=== PATIENT | male | born 2005 | race African-American/Black ===

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

== ENCOUNTER 2023-01-06 21:23 | Emergency (ER) | payer BC, SELFPAY ==
[2023-01-06 21:24] VITALS: BP 173/64; PULSE 121; RESP 16; TEMP 37; O2SAT 100
--- NOTE | 2023-01-06 21:40 | ECG_ITS ---
Measurements Intervals [place] Rate: 125 P: 71 PA: 144 QRS: -14 QRSD: 96 T: 57 QT: 298 QTc: 430 Interpretive Statements SINUS TACHYCARDIA EARLY REPOLARIZATION OTHERWISE nORMAL ECG Electronically Signed On 01-07-2023 8:29:33 CDT by Benjamín Byrd M.D.
--- NOTE | 2023-01-06 21:41 | ED.GENADULT ---
HPI - General Adult General Chief complaint: Nausea/Vomiting/Diarrhea Stated complaint: vomiting Time Seen by Provider: 01/06/23 21:24 History of Present Illness HPI narrative: 17-year-old male presents to the emergency department for evaluation of nausea vomiting and abdominal cramping. Patient states he worked out in the sun today and reports he was drinking Gatorade and water but started having the onset of symptoms. Patient denies any recent coughs colds or fevers. Patient denies any significant past medical history other than allergies. Related Data Allergies Allergy/AdvReac Type Severity Reaction Status Date / Time peanut Allergy Unknown Swelling Verified 09/23/22 19:20 of Lip/Tongue/Throat tree nut Allergy Unknown Swelling Verified 09/23/22 19:20 of Lip/Tongue/Throat shellfish derived Allergy Swelling Verified 09/23/22 19:20 of Lip/Tongue/Throat SEA FOOD Allergy Unknown Swelling Uncoded 09/23/22 19:20 of Lip/Tongue/Throat Review of Systems Review of Systems: All systems reviewed & are unremarkable except as noted in HPI and below Exam Narrative: APPEARANCE: Well appearing, no pain, no distress, well-nourished. HEAD: normocephalic, atraumatic. EYES: PERRLA/EOMI, conjunctivae clear. NOSE: Normal no drainage NECK: Supple. No adenopathy, no masses. RESPIRATORY: Airway patent, respirations nonlabored. Clear to auscultation bilaterally, no rales, rhonchi, wheezing. CARDIOVASCULAR: Regular rate and rhythm without murmurs rubs or gallops. ABDOMINAL: Soft, nontender, nondistended, normal bowel sounds MUSCULOSKELETAL: Moves all extremities. Strength/ROM intact, No edema, No calf tenderness. NEURO: Alert. Cranial nerves II through XII intact. SKIN: Warm, dry. Normal Color Course Course Emergency Course: 17-year-old male presented the ED for evaluation of nausea vomiting abdominal cramping. He is a patient was sticking his fingers in his throat during the initial examination and patient was asked to refrain from this. Patient was treated with IV Zofran and IV fluids. CBC CMP lipase and lactic were ordered. Patient was tachycardic and EKG was ordered. Patient was updated on the plan for treatment. All questions and concerns were addressed. Patient is afebrile with no leukocytosis patient has a stable hemoglobin. No significant electrolyte abnormalities. Urine shows no evidence of infection. Patient did feel improved with rehydration. Patient and family were updated the results of the work-up. Vital Signs Vital signs: Vital Signs Temperature 98.6 F 01/06/23 21:24 Pulse Rate 121 H 01/06/23 21:24 Respiratory Rate 16 01/06/23 21:24 Blood Pressure 173/64 H 01/06/23 21:24 Pulse Oximetry 100 01/06/23 21:24 Oxygen Delivery Room Air 01/06/23 21:24 Temperature 98.1 F 01/07/23 00:14 Pulse Rate 92 01/07/23 00:14 Respiratory Rate 15 01/07/23 00:14 Blood Pressure 146/61 H 01/07/23 00:14 Pulse Oximetry 97 01/07/23 00:14 Oxygen Delivery Room Air 01/06/23 21:24 Medical Decision Making Differential Diagnosis Differential Diagnosis: Dehydration, nausea vomiting diarrhea Vital Signs Vital Signs: Vital Signs Temperature 98.6 F 01/06/23 21:24 Pulse Rate 121 H 01/06/23 21:24 Respiratory Rate 16 01/06/23 21:24 Blood Pressure 173/64 H 01/06/23 21:24 Pulse Oximetry 100 01/06/23 21:24 Oxygen Delivery Room Air 01/06/23 21:24 Temperature 98.1 F 01/07/23 00:14 Pulse Rate 92 01/07/23 00:14 Respiratory Rate 15 01/07/23 00:14 Blood Pressure 146/61 H 01/07/23 00:14 Pulse Oximetry 97 01/07/23 00:14 Oxygen Delivery Room Air 01/06/23 21:24 Lab Data Lab results reviewed: Yes I reviewed the patient's lab results. 01/06/23 21:52 01/06/23 21:52 Labs: Lab Results 01/06/23 01/06/23 Range/Units 21:52 22:27 WBC 9.1 (4.5-10.0) K/mm3 RBC 5.10 (4.6-6.20) M/mm3 Hg
[2023-01-06] MEDS: SODIUM CHLORIDE 0.9% IV 1,000 ML 999 ML IV CONT ×2 (21:56→23:14)
[2023-01-06] MEDS: ONDANSETRON INJ 4 MG/2 ML VIAL IV PUSH (21:57)
[2023-01-06 21:58] LABS: Basophils Percent Auto 0.4 % (0.2-1.2); Eosinophils Absolute Auto 0.3 K/mm3 (0-0.3); Eosinophils Percent Auto 3.8 % (0-4.4); Hemoglobin 14.2 g/dL (14.0-18.0); Immature Granulocyte Absolute 0.02 K/mm3 (0.00-0.031); Immature Granulocyte Percent A 0.2 % (0-0.5); Lymphocytes Absolute Auto 1.74 K/mm3 (0.9-3.2); Lymphocytes Percent Auto 19.2 % (18.3-44.2); Mean Corpuscular Hemoglobin 27.8 pg (26-34); Mean Corpuscular Volume 84.3 fl (80-100); Mean Platelet Volume 10.2 fl (7.4-10.4); Monocytes Absolute Auto 0.8 K/mm3 (0.1-0.6); Monocytes Percent Auto 9.2 % (2.6-8.5); Neutrophils Absolute Auto 6.1 K/mm3 (1.3-6.7); Neutrophils Percent Auto 67.2 % (45.5-73.1); Platelet Count Result 228 k/mm3 (150-375); Red Cell Distribution Width 13.9 % (11.5-14.5); White Blood Count 9.1 K/mm3 (4.5-10.0)
[2023-01-06 22:17] LABS: Alanine Aminotransferase 32 U/L (6-50); Albumin Level 4.4 g/dL (3.7-5.6); Alkaline Phosphatase 158 U/L (58-237); Anion Gap 9 mmol/L (8-16); Aspartate Amino Transferase 46 U/L (17-59); Bilirubin,Total 0.5 mg/dL (0.2-1.3); Blood Urea Nitrogen 22 mg/dL (8-21); Calcium 9.2 mg/dL (8.9-10.7); Carbon Dioxide 28 mmol/L (22-30); Chloride 97 mmol/L (98-107); Estimated CRCL calculation 97 ml/min; Estimated Glomerular Filt Rate > 60; Glucose 191 mg/dL (65-110); Potassium 3.4 mmol/L (3.4-5.0); Sodium 134 mmol/L (134-143)
--- NOTE | 2023-01-06 22:25 | PC.NURSE ---
Assumed care of patient at this time. Report received from NADER Pham.
[2023-01-06 22:58] LABS: Appearance Urine Clear (Clear); Bilirubin Urine Negative (Negative); Blood Urine Negative (Negative); Color Urine Yellow (Yellow); Glucose Urine UA Trace mg/dL (Negative); Ketones Urine Negative (Negative); Leukocyte Esterase Ur Negative LEU/UL (Negative); Nitrate Urine Negative (Negative); Protein Urine Negative (Negative); Specific Grav Ur 1.007 (1.001-1.035); Urobilinogen Urine 0.2 mg/dL (<2.0)
[2023-01-06 23:02] LABS: Add Urine Microscopic? NO
[2023-01-07 00:14] VITALS: BP 146/61; PULSE 92; RESP 15; TEMP 36.7; O2SAT 97
== END 2023-01-07 00:16 | disposition home or self-care (01) ==
PROVIDERS: Emergency Provider Emergency Medicine
DX: E86.0 Dehydration (principal); R11.2 Nausea with vomiting, unspecified
CPT/HCPCS: 36415; 80053; 81003; 85025; 93005; 96361; 96374; 99284; J2405; J7030

== ENCOUNTER 2023-01-25 19:22 | Emergency (ER) | payer BC, SELFPAY ==
--- NOTE | ~2023-01-25 | XR_ITS ---
EXAMINATION: XR chest 2V DATE: 01/25/2023 20:11 INDICATION: Shortness of breath. TECHNIQUE: Frontal and lateral views of the chest were obtained. COMPARISON: None. FINDINGS: There is no pneumonia, pleural effusion, or pneumothorax. The heart size is normal. Pectus excavatum is noted. IMPRESSION: 1. No acute cardiopulmonary disease. Reviewed, dictated and finalized at location E.
[2023-01-25 19:48] VITALS: BP 148/65; PULSE 108; RESP 14; TEMP 37.1; O2SAT 100
[2023-01-25 20:48] LABS: Basophils Percent Auto 0.3 % (0.2-1.2); Eosinophils Absolute Auto 0.1 K/mm3 (0-0.3); Eosinophils Percent Auto 0.8 % (0-4.4); Hematocrit 47.1 % (42.0-52.0); Hemoglobin 15.6 g/dL (14.0-18.0); Immature Granulocyte Absolute 0.04 K/mm3 (0.00-0.031); Immature Granulocyte Percent A 0.3 % (0-0.5); Lymphocytes Absolute Auto 1.58 K/mm3 (0.9-3.2); Lymphocytes Percent Auto 12.6 % (18.3-44.2); Mean Corpuscular HGB Conc 33.1 g/dl (32-36); Mean Corpuscular Volume 84.6 fl (80-100); Mean Platelet Volume 10.6 fl (7.4-10.4); Monocytes Percent Auto 7.7 % (2.6-8.5); Neutrophils Absolute Auto 9.8 K/mm3 (1.3-6.7); Neutrophils Percent Auto 78.3 % (45.5-73.1); Platelet Count Result 267 k/mm3 (150-375); Red Blood Count 5.57 M/mm3 (4.6-6.20); Red Cell Distribution Width 14.2 % (11.5-14.5); White Blood Count 12.5 K/mm3 (4.5-10.0)
[2023-01-25 20:50] LABS: Appearance Urine Clear (Clear); Bilirubin Urine Negative (Negative); Blood Urine Negative (Negative); Color Urine Yellow (Yellow); Glucose Urine UA Negative (Negative); Ketones Urine Negative (Negative); Leukocyte Esterase Ur Negative LEU/UL (Negative); Nitrate Urine Negative (Negative); Protein Urine Negative (Negative); Specific Grav Ur 1.018 (1.001-1.035)
[2023-01-25 20:52] LABS: Add Urine Microscopic? NO
[2023-01-25 20:59] LABS: Alanine Aminotransferase 34 U/L (6-50); Alkaline Phosphatase 143 U/L (58-237); Anion Gap 7 mmol/L (8-16); Aspartate Amino Transferase 42 U/L (17-59); Bilirubin,Total 0.8 mg/dL (0.2-1.3); Blood Urea Nitrogen 14 mg/dL (8-21); Calcium 9.9 mg/dL (8.9-10.7); Carbon Dioxide 30 mmol/L (22-30); Chloride 98 mmol/L (98-107); Estimated CRCL calculation 88 ml/min; Estimated Glomerular Filt Rate > 60; Glucose 121 mg/dL (65-110); Lipase 42 U/L (23-300); Potassium 3.6 mmol/L (3.4-5.0); Sodium 135 mmol/L (134-143)
[2023-01-25] MEDS: ONDANSETRON HCL ODT 4 MG TABLET PO (22:14)
[2023-01-25] MEDS: IBUPROFEN 400 MG TABLET 800 MG PO (23:04)
--- NOTE | 2023-01-25 23:24 | ED.NAVMDI ---
HPI - Nausea/Vomiting/Diarrhea General Chief complaint: Nausea/Vomiting/Diarrhea <Ro Russell APRN - Last Filed: 01/26/23 02:00> Stated complaint: nausea, hard to breathe <Ro Russell APRN - Last Filed: 01/26/23 02:00> Time Seen by Provider: 01/25/23 21:19 <Ro Russell APRN - Last Filed: 01/26/23 02:00> History of Present Illness HPI Narrative: 17 year old male presents today with complaints of nausea, sore throat, and left hip pain. States started today. He has been able to drink fluids and stay hydrated but just does not feel good. No vomiting, denies abdominal pain, difficulty with urination. Patient presented here with similar symptoms about 1 month ago. He does not have a primary. works for a [employer] company but has not worked today. <Ro Russell APRN - Last Filed: 01/26/23 02:00> MD elicited complaint: nausea <Ro Russell APRN - Last Filed: 01/26/23 02:00> Related Data Allergies/Adverse reactions: Allergies Allergy/AdvReac Type Severity Reaction Status Date / Time peanut Allergy Unknown Swelling Verified 01/25/23 21:23 of Lip/Tongue/Throat tree nut Allergy Unknown Swelling Verified 01/25/23 21:23 of Lip/Tongue/Throat shellfish derived Allergy Swelling Verified 01/25/23 21:23 of Lip/Tongue/Throat SEA FOOD Allergy Unknown Swelling Uncoded 09/23/22 19:20 of Lip/Tongue/Throat <Ro Russell APRN - Last Filed: 01/26/23 02:00> Review of Systems Review of Systems: CONSTITUTIONAL: Denies fever, chills, or sweats. EYES: Denies visual changes, redness, or discharge. ENT: Scratchy throat. Denies rhinorrhea, congestion, or otalgia. CARDIOVASCULAR: Denies chest pain, palpitations, or edema. RESPIRATORY: Denies cough or dyspnea. GASTROINTESTINAL: Nausea. Denies abdominal pain, vomiting, or diarrhea. GENITOURINARY: Denies dysuria or hematuria. MUSCULOSKELETAL: Denies back pain, joint pain, or myalgia. <Ro Russell APRN - Last Filed: 01/26/23 02:00> Exam Narrative: GENERAL: Well-appearing, well-nourished, and in no acute distress. HEAD: Normocephalic, atraumatic. EYES: PERRLA and EOMI. ENT: Nares clear, no rhinorrhea or epistaxis. Mucous membranes moist. Oropharynx without tonsillar hypertrophy exudate or other lesions. Bilateral TMs pearly [place] nonbulging NECK: Supple. No adenopathy or masses. CHEST: Clear to auscultation. No respiratory distress. No wheezes rales or rhonchi HEART: Regular rate and rhythm. No murmur heard. Normal peripheral pulses. ABDOMEN: Soft, nontender, nondistended, normal active bowel sounds. EXTREMITIES: Normal range of motion. No edema. tenderness to left hip on palpation. no lymphadenopathy noted SKIN: Warm, dry, no rash. <Ro Russell APRN - Last Filed: 01/26/23 02:00> Course Course Emergency Course: improved after zofran and ibuprofen. Patient tolerating po intake. HR 80. <Ro Russell APRN - Last Filed: 01/26/23 02:00> BUSINESS OBJECTS/PA Physician Supervision I agree with midlevel documentation; I performed the medical decision making component of this evaluation. <Terra Saba MD - Last Filed: 01/26/23 02:09> Vital Signs Vital signs: Vital Signs Temperature 98.8 F 01/25/23 19:48 Pulse Rate 108 H 01/25/23 19:48 Respiratory Rate 14 01/25/23 19:48 Blood Pressure 148/65 H 01/25/23 19:48 Pulse Oximetry 100 01/25/23 19:48 Oxygen Delivery Room Air 01/25/23 19:48 Temperature 98.8 F 01/25/23 19:48 Pulse Rate 108 H 01/25/23 19:48 Respiratory Rate 14 01/25/23 19:48 Blood Pressure 148/65 H 01/25/23 19:48 Pulse Oximetry 100 01/25/23 19:48 Oxygen Delivery Room Air 01/25/23 19:48 <Ro Russell APRN - Last Filed: 01/26/23 02:00> Vital Signs Temperature 98.8 F 01/25/23 19:48 Pulse Rate 108 H 01/25/23 19:48 Respiratory Rate 14 01/25/23 19:48 Blood Pressure 148/65 H 01/25/23 19:48 Pulse Oximetry 100
== END 2023-01-25 23:35 | disposition home or self-care (01) ==
PROVIDERS: Emergency Medicine; Emergency Provider Nurse Practitioner Family
DX: R11.0 Nausea (principal)
CPT/HCPCS: 36415; 71046; 80053; 81003; 83690; 85025; 99283; A9270

== ENCOUNTER 2023-05-07 14:10 | Emergency (ER) | payer BC, SELFPAY ==
--- NOTE | 2023-05-07 14:13 | ECG_ITS ---
Measurements Intervals [place] Rate: 87 P: 81 AK: 131 QRS: -45 QRSD: 94 T: 64 QT: 326 QTc: 394 Interpretive Statements SINUS RHYTHM WITH SINUS ARRHYTHMIA LEFT ANTERIOR FASCICULAR BLOCK [QRS AXIS <= -45, QR IN I, RS IN II] EARLY REPOLARIZATION [ST ELEVATION WITH NORMALLY INFLECTED T WAVE] COMPARED TO ECG 01/06/2023 21:51:05 THE HEART RATE IS SLOWER Electronically Signed On 05-08-2023 19:44:14 CDT by Ewa Blank M.D.
[2023-05-07 14:14] VITALS: BP 132/68; PULSE 90; RESP 18; TEMP 37.2; O2SAT 99
--- NOTE | 2023-05-07 16:58 | ED.CHESTPAIN ---
HPI - Chest Pain General Chief Complaint: Chest Pain Stated Complaint: sent by PCP for chest pain Time Seen by Provider: 05/07/23 16:49 History of Present Illness HPI narrative: Pt presents with intermittent brief sharp cp in left lower chest for the last 3 days. Pt says he notices them sometimes when swallowing or with certain movements. Pt denies SOB. Pains last a few seconds and resolve but recur. Pt has no cardiac risk factors. Pt takes no meds. Related Data Allergies Allergy/AdvReac Type Severity Reaction Status Date / Time peanut Allergy Unknown Swelling Verified 05/07/23 14:11 of Lip/Tongue/Throat tree nut Allergy Unknown Swelling Verified 05/07/23 14:11 of Lip/Tongue/Throat shellfish derived Allergy Swelling Verified 05/07/23 14:11 of Lip/Tongue/Throat SEA FOOD Allergy Unknown Swelling Uncoded 05/07/23 14:11 of Lip/Tongue/Throat Review of Systems Review of Systems: All systems reviewed & are unremarkable except as noted in HPI and below Exam Const: General: healthy appearing and no acute distress Nutritional Appearance: well nourished Orientation/consciousness: patient oriented x3 Limitations: no limitations Chest: Chest palpation & inspection: tenderness (tender left anterior lower ribs to palpation of intercostal muscles) Resp: Effort & Inspection: normal respiratory effort Auscultation: clear to auscultation bilaterally Cardio: Rate: regular rate Rhythm: regular rhythm GI: GI Palp: Yes Soft to palpation Auscultation: normal bowel sounds Skin: General skin exam: normal color Neuro: General: patient oriented x3, moves all extremities and no focal motor deficits Speech: normal speech Extrem: General: normal to inspection and no clubbing, cyanosis or edema Psych: Mental Status: mental status grossly normal Affect: normal affect Attitude: cooperative Course Vital Signs Vital signs: Vital Signs Temperature 98.9 F 05/07/23 14:14 Pulse Rate 90 05/07/23 14:14 Respiratory Rate 18 05/07/23 14:14 Blood Pressure 132/68 05/07/23 14:14 Pulse Oximetry 99 05/07/23 14:14 Oxygen Delivery Room Air 05/07/23 14:14 Temperature 98.9 F 05/07/23 14:14 Pulse Rate 90 05/07/23 14:14 Respiratory Rate 18 05/07/23 14:14 Blood Pressure 132/68 05/07/23 14:14 Pulse Oximetry 99 05/07/23 14:14 Oxygen Delivery Room Air 05/07/23 14:14 MDM - Chest Pain MDM Narrative Medical decision making narrative: reproduclible lower anterior cp likely intercostal muscle spasm ekg shows early repo no acute changes home on nsaids and flexeril ECG Data EKG #1: Interpretation: sinus rhythm with sinus arrythmia rate 87, lafb early repol Discharge Plan Discharge Clinical Impression: Anterior chest wall pain Patient Disposition: Home, Self-Care Condition: Stable Instructions: Antibiotic Form, Chest Wall Pain (ED) Prescriptions: New naproxen [Naprosyn] 500 mg tablet 500 mg PO BID Qty: 20 0RF cyclobenzaprine 10 mg tablet 10 mg PO TID Qty: 14 0RF No Action ondansetron 4 mg tablet,disintegrating 4 mg PO Q8H PRN (Reason: nausea and vomiting) Qty: 14 0RF penicillin V potassium 500 mg tablet 500 mg PO Q12H 10 Days Qty: 20 0RF prednisone 20 mg tablet 40 mg PO DAILY Qty: 10 0RF epinephrine [EpiPen 2-Yordy] 0.3 mg/0.3 mL auto-injector 0.3 mg IM ONCE Qty: 2 0RF Rx Instructions: as a single dose; may repeat once Follow-up/Referrals: PHYSICIAN,MACHINE WASHER [Non-Staff] - Quality HEART score for chest pain patients History: slightly suspicious ECG: normal Age: < or = to 45 years Risk factors: no risk factors known Troponin: < or = to 1x normal limit Heart score: 0
== END 2023-05-07 17:51 | disposition home or self-care (01) ==
PROVIDERS: Emergency Provider Emergency Medicine; PCP Emergency Medicine
DX: R07.89 Other chest pain (principal)
CPT/HCPCS: 93005; 99283

== ENCOUNTER 2023-05-19 13:25 | Emergency (ER) | payer BC, SELFPAY ==
--- NOTE | ~2023-05-19 | XR_ITS ---
EXAMINATION: XR abdomen/kub 1V DATE: 05/19/2023 14:35 INDICATION: Centralized lower abdominal pain TECHNIQUE: A supine view of the abdomen on 2 radiographs was obtained. COMPARISON: None. FINDINGS: Small amount of gas and stool scattered throughout the colon. No dilated gas-filled loops of bowel to suggest obstruction. No organomegaly or suspicious calcifications in the abdomen or pelvis. Psoas sh adows are unremarkable. Bones are unremarkable. IMPRESSION: 1. Normal study. Reviewed, dictated and finalized at location A. IMPRESSION: 1. Normal study.
[2023-05-19 13:27] VITALS: BP 146/65; PULSE 108; RESP 16; TEMP 36.7; O2SAT 98
--- NOTE | 2023-05-19 13:53 | ED.ABDPAIN ---
HPI - Abdominal Pain General Chief Complaint: Abdominal Pain Stated Complaint: abd pain Time Seen by Provider: 05/19/23 13:36 History of Present Illness HPI narrative: Patient is a 17-year-old male who presents to the emergency department this afternoon complaining of abdominal pain. Patient states that the pain started this morning, states that it did not wake him up from sleep and had a gradual onset. He describes the pain as mid epigastric pain. Patient admits to drinking alcohol yesterday, but states that he does not drink daily and denies any excessive alcohol use. Patient also denies any family history of cardiovascular disease and is currently denying any additional symptoms including chest pain, shortness of breath, nausea, vomiting, dysuria, hematuria, constipation, diarrhea, melena, hematochezia, fevers or chills. He also denies any headaches, dizziness, lightheadedness, blurry visions, dizziness, focal weakness, numbness and or tingling. There are no other modifying, alleviating, or precipitating factors at this time. Related Data Allergies Allergy/AdvReac Type Severity Reaction Status Date / Time peanut Allergy Unknown Swelling Verified 05/19/23 13:36 of Lip/Tongue/Throat tree nut Allergy Unknown Swelling Verified 05/19/23 13:36 of Lip/Tongue/Throat shellfish derived Allergy Swelling Verified 05/19/23 13:36 of Lip/Tongue/Throat SEA FOOD Allergy Unknown Swelling Uncoded 05/07/23 14:11 of Lip/Tongue/Throat Review of Systems Review of Systems: All systems are reviewed and are negative unless stated otherwise in the HPI. Exam Narrative: General: Alert, awake, afebrile, in no acute distress. HEENT: PERRL, no rhinorrhea, no post nasal drip, oropharynx clear. Neck: Trachea midline, no JVD, no lymphadenopathy. Cardiovascular: Tachycardic with regular rhythm, no murmurs, rubs or gallops, no peripheral edema. Respiratory: Clear to auscultation bilaterally, no tachypnea, no wheezing, no rhonchi, no rubs, no respiratory distress. Abdomen: Soft, nontender., nondistended, no rebound, no guarding, no peritoneal signs. Musculoskeletal: No joint swelling or deformity, normal muscle tone. Skin: No rashes or petechia, no signs of infection. Psychiatric: Alert and oriented, normal behavior and judgment for situation. Neurological: Alert and oriented to person, place, and time. Follows all commands. No focal deficits, speech is clear and fluent. Course Vital Signs Vital signs: Vital Signs Temperature 98.1 F 05/19/23 13:27 Pulse Rate 108 H 05/19/23 13:27 Respiratory Rate 16 05/19/23 13:27 Blood Pressure 146/65 H 05/19/23 13:27 Pulse Oximetry 98 05/19/23 13:27 Oxygen Delivery Room Air 05/19/23 13:27 Temperature 98.1 F 05/19/23 13:27 Pulse Rate 108 H 05/19/23 13:27 Respiratory Rate 16 05/19/23 13:27 Blood Pressure 146/65 H 05/19/23 13:27 Pulse Oximetry 98 05/19/23 13:27 Oxygen Delivery Room Air 05/19/23 13:27 MDM - Abdominal Pain MDM Narrative Medical decision making narrative: The patient was evaluated by myself in the emergency department. History is obtained from patient who is an independent historian and physical exam was performed. External medical records were reviewed at this time. IV was established and pertinent tests were ordered. Laboratory results obtained revealing no acute process. Imaging studies obtained included upright abdomen x-ray which was independently interpreted by me revealing mild stool and gas within the colon, otherwise no acute process, which is pending final radiology interpretation. Patient admits that he does have a history of acid reflux and did take Tums at home which made him burp and the burping did alleviate some of his pain. Differential diagnosis considerations include acute pancreatitis, biliary colic, cholecystitis, and gastritis. I have evaluated and discussed social determinants of heal
[2023-05-19 14:03] LABS: Basophils Percent Auto 0.5 % (0.2-1.2); Eosinophils Absolute Auto 0.1 K/mm3 (0-0.3); Eosinophils Percent Auto 1.7 % (0-4.4); Hematocrit 44.2 % (42.0-52.0); Hemoglobin 14.5 g/dL (14.0-18.0); Immature Granulocyte Absolute 0.02 K/mm3 (0.00-0.031); Immature Granulocyte Percent A 0.3 % (0-0.5); Lymphocytes Absolute Auto 1.12 K/mm3 (0.9-3.2); Lymphocytes Percent Auto 14.9 % (18.3-44.2); Mean Corpuscular HGB Conc 32.8 g/dl (32-36); Mean Corpuscular Hemoglobin 27.7 pg (26-34); Mean Corpuscular Volume 84.4 fl (80-100); Mean Platelet Volume 10.2 fl (7.4-10.4); Monocytes Absolute Auto 0.6 K/mm3 (0.1-0.6); Monocytes Percent Auto 7.8 % (2.6-8.5); Neutrophils Absolute Auto 5.6 K/mm3 (1.3-6.7); Neutrophils Percent Auto 74.8 % (45.5-73.1); Platelet Count Result 266 k/mm3 (150-375); Red Blood Count 5.24 M/mm3 (4.6-6.20); Red Cell Distribution Width 12.8 % (11.5-14.5); White Blood Count 7.5 K/mm3 (4.5-10.0)
[2023-05-19 14:13] LABS: Alanine Aminotransferase 18 U/L (6-50); Albumin Level 4.7 g/dL (3.7-5.6); Alkaline Phosphatase 88 U/L (58-237); Anion Gap 6 mmol/L (8-16); Aspartate Amino Transferase 32 U/L (17-59); Bilirubin,Total 0.8 mg/dL (0.2-1.3); Blood Urea Nitrogen 16 mg/dL (8-21); Calcium 10.2 mg/dL (8.9-10.7); Carbon Dioxide 28 mmol/L (22-30); Chloride 104 mmol/L (98-107); Estimated CRCL calculation 121 ml/min; Estimated Glomerular Filt Rate > 60; Glucose 100 mg/dL (65-110); Lipase 39 U/L (23-300); Potassium 4.3 mmol/L (3.4-5.0); Sodium 138 mmol/L (134-143)
[2023-05-19 14:54] LABS: Appearance Urine Turbid (Clear); Bacteria Urine None Seen /hpf; Bilirubin Urine Negative (Negative); Blood Urine Negative (Negative); Color Urine Yellow (Yellow); Glucose Urine UA Negative (Negative); Ketones Urine Negative (Negative); Leukocyte Esterase Ur Negative LEU/UL (Negative); Nitrate Urine Negative (Negative); Non Pathogenic Casts 0-2; Protein Urine Negative (Negative); RBC Urine 0-2 /hpf (0-2); Specific Grav Ur 1.022 (1.001-1.035); Squamous Epithelial Cell Urine None seen /hpf (Few); WBC Urine 0-5 /hpf; pH Urine 8.5 (5.0-9.0)
[2023-05-19 14:55] LABS: Add Urine Microscopic? YES
[2023-05-19 15:28] VITALS: BP 141/71; PULSE 87; RESP 20; O2SAT 100
== END 2023-05-19 15:29 | disposition home or self-care (01) ==
PROVIDERS: Emergency Provider Emergency Medicine; PCP Emergency Medicine
DX: K29.70 Gastritis, unspecified, without bleeding (principal)
CPT/HCPCS: 36415; 74018; 80053; 81001; 82248; 83690; 85025; 99283

== ENCOUNTER 2023-05-31 04:46 | Emergency (ER) | payer BC, SELFPAY ==
[2023-05-31 04:50] VITALS: BP 146/57; PULSE 100; RESP 14; TEMP 37; O2SAT 100
[2023-05-31 04:56] VITALS: BP 138/70; PULSE 98; RESP 15; TEMP 36.8; O2SAT 100
--- NOTE | 2023-05-31 05:10 | ED.GENADULT ---
HPI - General Adult General Chief complaint: Headache Stated complaint: CHILDERS Time Seen by Provider: 05/31/23 05:00 History of Present Illness HPI narrative: This is a 17-year-old male presenting ED with chief complaint of headache. Symptoms started 4 hours ago. Describes a pounding pain on the right side of his head. 8/10 intensity, improving. He has had headaches like this in the past. Patient denies sudden onset, loss of consciousness, nausea vomiting or light sensitivity. No fever chills. No focal neurologic deficits. Related Data Allergies Allergy/AdvReac Type Severity Reaction Status Date / Time peanut Allergy Unknown Swelling Verified 05/31/23 04:52 of Lip/Tongue/Throat tree nut Allergy Unknown Swelling Verified 05/31/23 04:52 of Lip/Tongue/Throat shellfish derived Allergy Swelling Verified 05/31/23 04:52 of Lip/Tongue/Throat SEA FOOD Allergy Unknown Swelling Uncoded 05/31/23 04:52 of Lip/Tongue/Throat Exam Narrative: APPEARANCE: No apparent distress. Well appearing Head: atraumatic. EYES: EOMI, NOSE: Atraumatic NECK: Trachea midline RESPIRATORY: No increased rate of breathing CARDIOVASCULAR: RRR, ABDOMINAL: Non-distended MUSCULOSKELETAl: No obvious deformities NEURO: Alert. Cranial nerves 2-12 grossly intact. Sensation light touch, motor function cerebellar function intact for 4 extremities. Gait exam was normal. SKIN:: Warm, dry. Normal color PSYCHIATRIC: Normal affect Course Vital Signs Vital signs: Vital Signs Temperature 98.6 F 05/31/23 04:50 Pulse Rate 100 05/31/23 04:50 Respiratory Rate 14 05/31/23 04:50 Blood Pressure 146/57 H 05/31/23 04:50 Pulse Oximetry 100 05/31/23 04:50 Oxygen Delivery Room Air 05/31/23 04:50 Temperature 98.2 F 05/31/23 04:56 Pulse Rate 98 05/31/23 04:56 Respiratory Rate 15 05/31/23 04:56 Blood Pressure 138/70 05/31/23 04:56 Pulse Oximetry 100 05/31/23 04:56 Oxygen Delivery Room Air 05/31/23 04:56 Medical Decision Making [facility] Narrative Medical decision making narrative: -Course: 17-year-old male presenting headache. No red flags on history or physical given symptomatic treatment and discharged -DDX includes but is not limited to: Migraine, tension headache, sinus headache -Social determinants of health: Works at [employer], lives with roommate -External Chart Review: Review of previous ER visits for miscellaneous minor complaints -Dx tests considered but not ordered: CT head -no concerning findings on history physical -Interventions: Compazine, Benadryl Tylenol, Motrin -Shared decision making / Disposition: Discharge -RX Motrin Tylenol Vital Signs Vital Signs: Vital Signs Temperature 98.6 F 05/31/23 04:50 Pulse Rate 100 05/31/23 04:50 Respiratory Rate 14 05/31/23 04:50 Blood Pressure 146/57 H 05/31/23 04:50 Pulse Oximetry 100 05/31/23 04:50 Oxygen Delivery Room Air 05/31/23 04:50 Temperature 98.2 F 05/31/23 04:56 Pulse Rate 98 05/31/23 04:56 Respiratory Rate 15 05/31/23 04:56 Blood Pressure 138/70 05/31/23 04:56 Pulse Oximetry 100 05/31/23 04:56 Oxygen Delivery Room Air 05/31/23 04:56 Discharge Plan Discharge Clinical Impression: Headache Patient Disposition: Home, Self-Care Condition: Stable Instructions: Antibiotic Form, Acute Headache (ED) Additional Instructions: Please take Motrin Tylenol for your headaches. Please follow-up with your primary care physician for further management. Her headaches become unbearable, you develop visual changes or weakness and he can return emergency department. Prescriptions: No Action ondansetron 4 mg tablet,disintegrating 4 mg PO Q8H PRN (Reason: nausea and vomiting) Qty: 14 0RF pantoprazole [Protonix] 20 mg tablet,delayed release (DR/EC) 20 mg PO QAM Qty: 10 0RF penicillin V potassium 500 mg tablet 500 mg PO Q12H 10 Days Qty: 20 0RF pre
[2023-05-31] MEDS: PROCHLORPERAZINE EDISYLATE 10 MG/2 ML VIAL IM (05:19)
[2023-05-31] MEDS: IBUPROFEN 400 MG TABLET 800 MG PO (05:19)
[2023-05-31] MEDS: diphenhydrAMINE HCl INJ 50 MG/ML VIAL 25 MG IM (05:20)
[2023-05-31] MEDS: ACETAMINOPHEN 500 MG TABLET 1000 MG PO (05:20)
[2023-05-31 05:48] VITALS: BP 132/76; PULSE 73; RESP 15; O2SAT 100
== END 2023-05-31 05:50 | disposition home or self-care (01) ==
PROVIDERS: Emergency Provider Emergency Medicine; PCP Emergency Medicine
DX: R51.9 Headache, unspecified (principal)
CPT/HCPCS: 96372; 99284; A9270; J0780; J1200

== ENCOUNTER 2024-03-04 09:51 | Emergency (ER) | payer BC, SELFPAY ==
[2024-03-04 09:52] VITALS: BP 131/69; PULSE 70; RESP 16; TEMP 36.7; O2SAT 97
--- NOTE | 2024-03-04 10:04 | ED.MALEGU ---
HPI - Male Genitourinary General Chief complaint: Urogenital-Male Stated complaint: STI CHECK Time Seen by Provider: 03/04/24 09:56 History of Present Illness HPI Narrative: 18-year-old male with no significant medical problems presents to the emergency room for evaluation of I am here for STD testing . Patient states his last episode of unprotected intercourse was 2 weeks ago. Patient states he does not have a regular partner. No concerns over STIs, patient states I just want to make sure . Denies any dysuria, purulent penile drainage, testicular pain, lower abdominal pain, or fevers. patient is refusing treatment at this time. Related Data Allergies Allergy/AdvReac Type Severity Reaction Status Date / Time peanut Allergy Unknown Swelling Verified 03/04/24 09:54 of Lip/Tongue/Throat tree nut Allergy Unknown Swelling Verified 03/04/24 09:54 of Lip/Tongue/Throat shellfish derived Allergy Swelling Verified 03/04/24 09:54 of Lip/Tongue/Throat SEA FOOD Allergy Unknown Swelling Uncoded 03/04/24 09:54 of Lip/Tongue/Throat Review of Systems Review of Systems: ROS unremarkable except for noted in H Exam Narrative: GENERAL: Well-appearing, well-nourished, no physical limitations, and in no acute distress. HEAD: Normocephalic, atraumatic. EYES: Conjunctivae normal, PERRLA and EOMI. CHEST: Clear to auscultation. No respiratory distress. No wheezes rales or rhonchi. HEART: Regular rate and rhythm. No murmur heard. Normal peripheral pulses. ABDOMEN: Soft, nontender, nondistended, normal active bowel sounds. : Normal external male/female exam. BACK: No CVA tenderness; No cervical/thoracic/lumbar tenderness, step-offs, bony abnormality; FROM EXTREMITIES: Normal range of motion. No edema. No clubbing or cyanosis SKIN: Warm, dry, no rash. No noted wounds NEURO: No focal deficits. Alert and oriented x3. MAEW. CN's II-XI intact bilaterally, normal gait PSYCH: Cooperative. Normal mood and affect. Course Vital Signs Vital signs: Vital Signs Temperature 36.7 C 03/04/24 09:52 Pulse Rate 70 03/04/24 09:52 Respiratory Rate 16 03/04/24 09:52 Blood Pressure 131/69 03/04/24 09:52 Pulse Oximetry 97 03/04/24 09:52 Oxygen Delivery Room Air 03/04/24 09:52 Temperature 36.7 C 03/04/24 09:52 Pulse Rate 70 03/04/24 09:52 Respiratory Rate 16 03/04/24 09:52 Blood Pressure 131/69 03/04/24 09:52 Pulse Oximetry 97 03/04/24 09:52 Oxygen Delivery Room Air 03/04/24 09:52 MDM - Male Genitourinary MDM Narrative Medical decision making narrative: 18-year-old male presents emergency room evaluation of STI testing. Patient denied symptoms on history. Exam unremarkable. Patient has deferring treatment until test results. Discharge Plan Discharge Clinical Impression: High risk sexual behavior Patient Disposition: Home, Self-Care Condition: Stable Instructions: Antibiotic Form, Sexually Transmitted Diseases (ED) Prescriptions: No Action ondansetron 4 mg tablet,disintegrating 4 mg PO Q8H PRN (Reason: nausea and vomiting) Qty: 14 0RF pantoprazole [Protonix] 20 mg tablet,delayed release (DR/EC) 20 mg PO QAM Qty: 10 0RF penicillin V potassium 500 mg tablet 500 mg PO Q12H 10 Days Qty: 20 0RF prednisone 20 mg tablet 40 mg PO DAILY Qty: 10 0RF epinephrine [EpiPen 2-Yordy] 0.3 mg/0.3 mL auto-injector 0.3 mg IM ONCE Qty: 2 0RF Rx Instructions: as a single dose; may repeat once naproxen [Naprosyn] 500 mg tablet 500 mg PO BID Qty: 20 0RF cyclobenzaprine 10 mg tablet 10 mg PO TID Qty: 14 0RF Follow-up/Referrals: Juan Worley MD [Primary Care Provider] - Time of Disposition: 10:42
--- NOTE | 2024-03-04 11:03 | PC.NURSE ---
Pt denies any STD symptoms. States I just want to get checked
[2024-03-04 11:39] LABS: Rapid Plasma Reagin Non-Reactive (NonReactive)
[2024-03-04 12:17] LABS: Chlamydia trachomatis NOT DETECTED (NOT DETECTE); Neisseria gonorrhoeae PCR NOT DETECTED (NOT DETECTE)
[2024-03-04 12:25] VITALS: BP 130/69; PULSE 70; RESP 16; TEMP 36.8; O2SAT 99
== END 2024-03-04 12:27 | disposition home or self-care (01) ==
LOC: ANHED 10:49
PROVIDERS: Emergency Provider Nurse Practitioner Family; PCP Emergency Medicine
DX: Z11.3 Encounter for screening for infections with a predominantly sexual mode of transmission (principal); Z72.51 High risk heterosexual behavior
CPT/HCPCS: 36415; 86592; 87491; 87591; 99283

== ENCOUNTER 2024-08-25 11:33 | Emergency (ER) | payer BC, SELFPAY ==
--- NOTE | ~2024-08-25 | XR_ITS ---
CHEST RADIOGRAPH, PA AND LATERAL CLINICAL HISTORY: hemoptysis . COMPARISON: 01/25/2023 TECHNIQUE: PA and lateral views of the chest. FINDINGS The cardiomediastinal silhouette is unremarkable. The lungs are clear. Visualized osseous structures and soft tissues are unremarkable. IMPRESSION: No focal infiltrate or effusion. Reviewed, dictated and finalized at location [facility]. [facility]
[2024-08-25 12:27] VITALS: BP 137/84; PULSE 93; RESP 15; TEMP 36.6; O2SAT 97
--- NOTE | 2024-08-25 13:30 | ED_ITS ---
HPI - General Adult General Chief complaint: Unspecified Stated complaint: coughing up blood x 1day Time Seen by Provider: 08/25/24 13:31 Focused HPI: This is a 19 year old male that presents to the ER for hemoptysis. Reports he has been coughing up blood since this morning. Reports he is seeing a lot of dark blood. No active medical problems. He does not take blood thinners. GENERAL: Well-appearing, well-nourished, and in no acute distress. HEAD: Normocephalic, atraumatic. CHEST: Clear to auscultation. ?No respiratory distress. HEART: Regular rate and rhythm.? NEURO: ?Alert and oriented x3. Patient screened in triage and initial orders placed.? ?Additional care and disposition to be based upon?diagnostic testing and treatment. Related Data Allergies Allergy/AdvReac Type Severity Reaction Status Date / Time peanut Allergy Unknown Swelling Verified 08/25/24 12:31 of Lip/Tongue/Throat tree nut Allergy Unknown Swelling Verified 08/25/24 12:31 of Lip/Tongue/Throat shellfish derived Allergy Swelling Verified 08/25/24 12:31 of Lip/Tongue/Throat SEA FOOD Allergy Unknown Swelling Uncoded 08/25/24 12:31 of Lip/Tongue/Throat Course Vital Signs Vital signs: Vital Signs Temperature 97.9 F 08/25/24 12:27 Pulse Rate 93 08/25/24 12:27 Respiratory Rate 15 08/25/24 12:27 Blood Pressure 137/84 08/25/24 12:27 Pulse Oximetry 97 08/25/24 12:27 Oxygen Delivery Room Air 08/25/24 12:27 Temperature 97.9 F 08/25/24 12:27 Pulse Rate 93 08/25/24 12:27 Respiratory Rate 15 08/25/24 12:27 Blood Pressure 137/84 08/25/24 12:27 Pulse Oximetry 97 08/25/24 12:27 Oxygen Delivery Room Air 08/25/24 12:27 Medical Decision Making MDM Narrative Medical decision making narrative: Patient left after medical screening exam and before any further evaluation or management Vital Signs Vital Signs: Vital Signs Temperature 97.9 F 08/25/24 12:27 Pulse Rate 93 08/25/24 12:27 Respiratory Rate 15 08/25/24 12:27 Blood Pressure 137/84 08/25/24 12:27 Pulse Oximetry 97 08/25/24 12:27 Oxygen Delivery Room Air 08/25/24 12:27 Temperature 97.9 F 08/25/24 12:27 Pulse Rate 93 08/25/24 12:27 Respiratory Rate 15 08/25/24 12:27 Blood Pressure 137/84 08/25/24 12:27 Pulse Oximetry 97 08/25/24 12:27 Oxygen Delivery Room Air 08/25/24 12:27 Discharge Plan Discharge Clinical Impression: Hemoptysis Patient Disposition: Elopement After Seen by Prov Condition: Guarded Prognosis Patient Language: Latvian Prescriptions: No Action ondansetron 4 mg tablet,disintegrating 4 mg PO Q8H PRN (Reason: nausea and vomiting) Qty: 14 0RF pantoprazole [Protonix] 20 mg tablet,delayed release (DR/EC) 20 mg PO QAM Qty: 10 0RF penicillin V potassium 500 mg tablet 500 mg PO Q12H 10 Days Qty: 20 0RF prednisone 20 mg tablet 40 mg PO DAILY Qty: 10 0RF epinephrine [EpiPen 2-Yordy] 0.3 mg/0.3 mL auto-injector 0.3 mg IM ONCE Qty: 2 0RF Rx Instructions: as a single dose; may repeat once naproxen [Naprosyn] 500 mg tablet 500 mg PO BID Qty: 20 0RF cyclobenzaprine 10 mg tablet 10 mg PO TID Qty: 14 0RF Follow-up/Referrals: Juan Worley MD [Primary Care Provider] -
--- NOTE | 2024-08-25 15:00 | PC.NURSE ---
family member brought pt to intake and states we are going to a different hospital. Pt declined to be seen here at this time due to the wait. Pt ambulated out in NAD. Steady gait.
== END 2024-08-25 17:00 | disposition left against medical advice (07) ==
PROVIDERS: Emergency Provider Physician Assistant; PCP Emergency Medicine
DX: R04.2 Hemoptysis (principal)
CPT/HCPCS: 71046; 99199; 99283